=== PATIENT | male | born 1985 | race African-American/Black ===

== ENCOUNTER 2017-08-02 21:26 | Emergency (ER) | payer OTHER ==
[2017-08-03] MEDS: KETOROLAC 60 MG INJ IM (05:53)
== END 2017-08-03 06:06 | disposition home or self-care (01) ==
LOC: FTE 08-03 06:06
DX: S00.83XA Contusion of other part of head, initial encounter (principal); K40.90 Unilateral inguinal hernia, without obstruction or gangrene, not specified as recurrent; N43.3 Hydrocele, unspecified; N50.3 Cyst of epididymis; F17.210 Nicotine dependence, cigarettes, uncomplicated; Y04.8XXA Assault by other bodily force, initial encounter
CPT/HCPCS: 70486; 76870; 96372; 99285-25